=== PATIENT | female | born 1965 | race Caucasian/White ===

== ENCOUNTER 2017-03-14 09:31 | Emergency (ER) | payer BC, MEDICAID ==
[~2017-03-14] VITALS: Ht 162.6 cm; Wt 94.8 kg
[~2017-03-14 09:31] MED LIST: ACETAMINOPHEN-H1 TA2 PO; ACYCLOVIR800 MG PO; AMITRIPTYLINE 550 MG OR; BACTRIM DS 8001 TA1 PO; BUFEN200 MG PO; CYCLOBENZAPRINE10 M1 OR; DIAZEPAM5 M1 PO; FLEXERIL10 MG PO; FLEXERIL5 MG PO; IBUPROFEN100 MG PO; KEFLEX 500MG.500 MG PO; LORTAB 5/500 501 TAB PO; LORTAB 500 MG-71 TAB PO; LYRICA50 MG PO; MEDROL 4MG. DOSE4 MG PO; METHOCARBAMOL750 M1 PO; MOTRIN800 MG PO; MUSCLE RELAXER PO; NAPROSYN 500MG500 MG PO; PHENERGAN 25MG.25 M1 PO; PHENERGAN 25MG.25 MG PR; PREDNISONE 10MG10 MG PO; PREDNISONE20 MG PO; PRILOSEC OTC20 MG PO; TYLENOL W/CODEI1 TA2 PO; ZOFRAN4 MG PO; [UNRECOGNIZED DRUG - OTHER] PO
[2017-03-14] MEDS ORDERED: BROMFED DM COU118 ML PO (09:59)
--- NOTE | 2017-03-14 09:59 | Urgent Treatment Center Report ---
History of Present Issue Date/Time Seen by Provider 03/14/17 0952 Visit Reason Pt arrived:Walked Presenting Problem:PT STATES COUGH AND SINUS CONGESTION X3 DAYS Location if Accident: Onset of symptoms date/time:03/12/17/ or onset unknown for:MEDICAL HX UNKNOWN Have you (or family members/close friends) recently traveled outside the [place]? N If Yes, where/when: Have you had exposure to infectious disease within the past month? TB? Other? Specify: c/o "I have that crud again." c/o scratchy throat, PND, rhinorrhea, head congestion, saira ear pressure, "and cough caused by that drainage tickling my throat". Symptoms x 2-3 days. Same symptoms "about 2 weeks ago then my grandbabies got it and now they have given it back to me". Denies fever, aches, chills, SOA. Mucinex hasn't helped. Feels worse at night. Source patient Exam Limitations no limitations ALLERGIES Coded Allergies: eletriptan (Intermediate, NUMBNESS AND TONGUE FELT FUNNY 03/01/16) gabapentin (MAKES EYE BLURRY 03/01/16) Home Medications Reported Medications Cyclobenzaprine Hcl 10 MG OR DAILY #60 HYDROCODONE/ACETAMINOPHEN (Hydrocodon-Acetaminophen 5-325) 1 TAB PO BID PRN PAIN #20 Diazepam 5 MG PO BID PRN PAIN #60 History Medical History General CAD? No Angina: No NH: No Hypertension? No Hyperlipidemia? No CHF? No DVT? No PE? No COPD? No Asthma? No Anemia? No GERD? No Gastric ulcers? No GI Bleed? No Hernia? No Thyroid Problems? No Hypothyroidism? No CVA? No Seizures? No Diabetes? No Insulin Dependent: No Insulin Pump: No Home FSBS? No Renal Insuffiency? No UTI? No Stones? No BPH? No GB Disease: No Nephritic Syndrome? No Asplenia? No Hepatitis? No Sickle Cell Disease? No Arthritis? No Migraines? Yes Cataracts? No Glaucoma? No MRSA? No HIV? No TB? No Anxiety? No Depression? No Cancer? No More? No Immunization HX DT/Tetanus UNKNOWN Flu 2YRSorMore Pneumonia NEVER Surgical Hx Previous Surgery?Y Tubal Ligation BREAST REDUCTION CERVICAL FUSION HYSTERECTOMY FOOT CYST REMOVED LEFT ROTATOR CUFF SPINAL FUSION SECOND SPINAL FUSION LEFT ROTACUFF NECK LOWER BACK Family History Family HX Diabetes Yes CAD Yes Hypertension No Hyperlipidemia Yes Cancer No TB No Social History Smoking Hx Smoker: Former Smoker Tobacco: No Alcohol Alcohol: No Review of Systems All Other Systems Reviewed and Negative Constitutional see HPI Eyes denies drainage ENT denies: ear discharge, throat pain ("just that drainage"), throat swelling. Respiratory see HPI, denies wheezing Cardiovascular denies chest pain Gastrointestinal denies no symptoms reported Musculoskeletal see HPI Skin denies rash Psychiatric/Neurological denies headache Physical Exam Vital Signs Vital Signs Date Time Temp Pulse Resp B/P Pulse O2 O2 Flow FiO2 Ox Delivery Rate 03/14 0936 97.2 95 20 123/72 99 General Appearance normal appearance, no apparent distress Eye Exam - bilateral eye normal exam Ear, Nose, Throat normal ENT inspection (x/ mild nasal congestion) Neck non-tender, supple Respiratory Status No: respiratory distress, productive cough, non productive cough. Lung Sounds anterior: lungs clear. posterior: lungs clear. bilateral: lungs clear. Cardiovascular regular rate/rhythm, no peripheral edema, no murmur Neurologic alert, oriented x 3 Mental status normal mood/affect Skin normal color, warm/dry Lymphatic no adenopathy Medical Decision Making LABS/Meds/Orders Pt receiving controlled substance in ED? No Departure Departure Time of Disposition 0957 Disposition DC Home or Self Care(routine) Clinical Impression Primary Impression: Upper respiratory virus Condition STABLE Referrals NO REFERRAL Follow up with Primary Care IMMEDIATELY for new or worsening symptoms OR no noticeable improvement over the next 72 hours. 911 for difficulty breathing or swallowing. Patient Instructions DI for Viral Upper Respiratory Infection -- Adult Additional Instructions * No sign of bacterial infection. Likely viral. Virus can take 7-14 days to run their course * Monitor Temp. FU if fevers begin * Encourage fluids, water, gatorade, powerade, pedialyte if infant/toddler/child * warm salt water gargles * warm fluids * sore throat lozenges * sleep elevated * humidifier/vaporizer * Bromfed may cause drowsiness. Know how it effects you (or your child) before driving, caring for small children, or sending your child to school. No other antihistamines/allergy medications while taking bromfed. Discharge Counseling Counseled pt/family regarding diagnosis, medications/RX, home care, follow up needs Prescriptions Current Visit Scripts D-METHORPHAN HB/P-EPD HCL/BPM (Bromfed Dm Cough Syrup) 10 ML PO QIDP PRN cough #240 ML at 1007
[2017-03-14 10:00] VITALS: BP 123/72
== END 2017-03-14 10:01 | disposition home or self-care (01) ==
LOC: UTC 09:31
DX: J06.9 Acute upper respiratory infection, unspecified (principal)

== ENCOUNTER 2017-05-24 01:04 | Emergency (ER) | payer BC, MEDICAID ==
[~2017-05-24] VITALS: Ht 162.6 cm; Wt 93.0 kg
[~2017-05-24 01:04] MED LIST changes: +BROMFED DM COU118 ML PO
[2017-05-24] MEDS ORDERED: MELOXICAM15 MG PO (01:16)
--- NOTE | 2017-05-24 01:22 | Emergency Room Report ---
History of Present Illness Time Seen by MD Galvan Presenting Problem in Triage Pt arrived:Walked Presenting Problem:C/O BACK PAIN TO MIDDLE OF BACK THAT RADIATES INTO RIGHT UPPER QUAD Onset of symptoms date/time:05/24/1703/02/1600 or onset unknown for: Treatment Prior to Arrival: [employer] Provided by: Sepsis Risk Assessment: Temp: 97.7 B/P: 156/93 MAP: 114 Pulse: 97 Resp: 18 Recent fever? N Clinical Suspician of Infection? N Mental Status: 1 - Regular (Normal Baseline) Sepsis Risk:Low Sepsis Risk Have you (or family members/close friends) recently traveled outside the [place]? N If Yes, where/when: Have you had exposure to infectious disease within the past month? N TB? Other? Specify: Source patient, RN notes reviewed, family, old records Exam Limitations no limitations Comment pt with upper back pain w/o trauma with no rash or fever with no cough - pt with hx of back surg and no acute neuro sx Cardiac Chest Pain Chest pain indicative of cardiac No Timing/Duration this evening Severity moderate ALLERGIES Coded Allergies: eletriptan (Intermediate, NUMBNESS AND TONGUE FELT FUNNY 03/01/16) gabapentin (MAKES EYE BLURRY 03/01/16) Home Medications Reported Medications Diazepam 5 MG PO BID PRN PAIN #60 Meloxicam (Meloxicam 15MG) 15 MG PO BID #30 History Medical History General CAD? No Angina: No VA: No Hypertension? No Hyperlipidemia? No CHF? No DVT? No PE? No COPD? No Asthma? No Anemia? No GERD? No Gastric ulcers? No GI Bleed? No Hernia? No Thyroid Problems? No Hypothyroidism? No CVA? No Seizures? No Diabetes? No Insulin Dependent: No Insulin Pump: No Home FSBS? No Renal Insuffiency? No End Stage Renal Disease? No UTI? No Stones? No BPH? No GB Disease: No Nephritic Syndrome? No Asplenia? No Hepatitis? No Sickle Cell Disease? No Arthritis? No Migraines? Yes Cataracts? No Glaucoma? No MRSA? No HIV? No TB? No Anxiety? No Depression? No Cancer? No More? 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 Respiratory denies cough, denies shortness of breath, denies wheezing Cardiovascular denies chest pain, denies syncope Gastrointestinal denies abdominal pain, denies diarrhea, denies vomiting Genitourinary denies: dysuria, frequency, hesitancy, hematuria. Musculoskeletal see HPI, back pain, denies joint pain, denies neck pain, other Skin denies rash Psychiatric/Neurological denies headache, denies seizure Physical Exam Vital Signs Vital Signs Date Time Temp Pulse Resp B/P Pulse O2 O2 Flow FiO2 Ox Delivery Rate 05/24 0259 77 18 118/71 97 05/24 0124 18 05/24 0109 97.7 97 18 156/93 99 - WBC >12,000 or <4,000 or 10% bands? 2 or more SIRS Criteria Met? B/P:118/71 MAP:114 Creatinine >2.0? UA output<0.5ml/kg/hr for 2 hrs? Platelet count >100,000? Lactate >2.0mmol/1? INR >1.2 or PTT > than 60 sec? Evidence of Organ Dysfunction? Provider documented clinical suspician of infection? N Sepsis Criteria Count: 1 Sepsis Risk: Low Sepsis Risk General Appearance no apparent distress Eye Exam - bilateral eye PERRL, bilateral eye EOMI Ear, Nose, Throat normal ENT inspection Neck non-tender Respiratory Status No: respiratory distress. Cardiovascular regular rate/rhythm Peripheral Pulses Pulses normal Yes Gastrointestinal soft, no organomegaly, no guarding, no rebound Back no CVA tenderness, no vertebral tenderness, decreased range of motion Extremities no calf tenderness Strength 4 Upper Ext (L), 4 Upper Ext (R), 4 Lower Ext (L), 4 Lower Ext (R) Neurologic alert, pet resort concierge II-XII nml as tested, no motor/sensory deficits Reflexes Reflexes normal No Mental status normal mood/affect Skin no rash cons.w/shingles Medical Decision Making LABS/Meds/Orders Pt receiving controlled substance in ED? No Results/Orders Laboratory Tests 05/24/17 0120: Sodium 140, Potassium 3.7, Chloride 101, Carbon Dioxide 27, BUN 18, Creatinine 0.9, Estimated Creat Clear 110, Estimated GFR (MDRD) 66, Glucose 101, Calcium 9.1, Total Bilirubin 0.5, AST 19, ALT 39, Alkaline Phosphatase 61, Total Protein 8.1, Albumin 4.2, Globulin 3.9 H, Albumin/Globulin Ratio 1.1, Amylase 62, Lipase 187, WBC 9.3, RBC 4.87, Hgb 13.8, Hct 41.6, MCV 85.3, RDW 12.3, Plt Count 274, MPV 7.7, Gran % 56.8, Gran # 5.3, Lymphocytes % 34.3, Monocytes % 6.5, Eosinophils % 1.9, Basophils % 0.5, Lymphocytes # 3.2, Monocytes # 0.6, Eosinophils # 0.2, Basophils # 0.1, PUBS MCHC 33.2, MCH 28.3 05/24/17 0112: Urine Color YELLOW, Urine Appearance CLEAR, Urine pH 6.5, Ur Specific [place] <= 1.005, Urine Protein NEGATIVE, Urine Ketones NEGATIVE, Urine Blood NEGATIVE, Urine Nitrate NEGATIVE, Urine Bilirubin NEGATIVE, Urine Urobilinogen 0.2, Ur Leukocyte Esterase NEGATIVE, Urine WBC OCC, Ur Squamous Epith Cells 3-5, Urine Bacteria TRACE, Urine Glucose NEGATIVE Current Medication Orders Sig/Veronika Start time Last Medication Dose Route Stop Time Status Admin Ketorolac 30 MG ONCE ONE 05/24 130 DC 05/24 Tromethamine IV 05/24 131 0124 Ondansetron HCl 4 MG ONCE ONE 05/24 130 DC 05/24 IV 05/24 131 012 Sodium Chloride 10 ML PRN PRN 05/24 130 AC IV 05/25 011 Sodium Chloride 1,000 ML .Q1H1M 05/24 130 DC 05/24 IV 05/24 023 0125 Sodium Chloride 10 ML PRN PRN 05/24 130 AC IV 05/25 119 Ketorolac 0 .STK-MED ONE 05/24 124 DC Tromethamine .ROUTE Ondansetron HCl 0 .STK-MED ONE 05/24 124 DC .ROUTE Sodium Chloride 1,000 ML .STK-MED ONE 05/24 123 DC IV Orders Procedure Date/time Status DIET-NOTHING BY MOUTH 05/[address] THORACIC SPINE W/O CONTRAST 05/[address] ABD & PELVIS W/O CONTRAST 05/[address] SCAN REQ 05/24 123 Complete CHEST-AP VIEW ONLY 05/[address] ABD/PELVIS REQ 05/24 121 Complete IV SALINE LOCK 05/24 121 Active LIPASE 05/24 121 Complete CBC WITH AUTO DIFF 05/24 121 Complete CHEM 12 PROFILE 05/24 121 Complete AMYLASE 05/24 121 Complete URINALYSIS/COMPLETE 05/24 109 Complete XRAY/CT/US XRAY/CT/US 1 XRAY chest XR interpretation by reviewed by me Xray Results normal/NAD XRAY/CT/US 2 CT abdomen, pelvis, T-spine CT interpretation by discussed w/radiologist Time results known: 314 CT Results normal/NAD Departure Departure Time of Disposition 031 Disposition DC Home or Self Care(routine) Clinical Impression Primary Impression: Thoracic radiculopathy due to degenerative joint disease of spine Condition STABLE Referrals Dequan Martino MD (Family) Patient Instructions DI for Thoracic Back Pain Additional Instructions use meds and see pcp for follow up Discharge Counseling Counseled pt/family regarding diagnosis, test results, medications/RX, follow up needs Prescriptions Current Visit Scripts Prednisone (Prednisone 20MG) 20 MG PO BID #10 TAB ED Critical Care Critical Care No at 0323
--- OUTSIDE RECORDS SUMMARY | 2017-05-24 01:28 | External Medical Summary Rpt ---
Author Author ILA Durbin, ILA Dubrin Organization [employer] Address Unknown Phone Unavailable
--- OUTSIDE RECORDS SUMMARY | 2017-05-24 01:28 | External Medical Summary Rpt | CCD ---
Author Author , ILA Organization [employer] Address Unknown Phone [email or web address] Care Team Providers Care Grocery Team Member Name Role Phone Yi Israel MD, Unavailable Unavailable Yi Israel MD Purpose Continuity of Care Document - 11-29-2012 through 2016 Problems Code Diagnosis DOS Provider Status K57.30 DIVERTICULO 02-13-2017 SIS OF LARGE INTESTINE WITHOUT PERFORATION OR ABSCESS WITHOUT BLEEDING K64.4 RESIDUAL 02-13-2017 HEMORRHOIDA L SKIN TAGS Z12.11 ENCOUNTER 02-13-2017 FOR SCREENING FOR MALIGNANT NEOPLASM OF COLON Z83.71 FAMILY 02-13-2017 HISTORY OF COLONIC POLYPS Z80.0 FAMILY 01-06-2017 HISTORY OF MALIGNANT NEOPLASM OF DIGESTIVE ORGANS 784.0 784.0 11-29-2012 [facility] Allergies, Adverse Reactions, Alerts Type Allergy to substance Drug Allergy Adverse Reaction to Substance Substance Reaction Severity REL-REILLY NUMBNESS & TONGUE Unknown FELT FUNNY Eletriptan NUMBNESS Intermediate Medications Na ND Rx Da Fi Fi Am Da Di Ph RX Ph St me C No te ll ll ou ys ag ar # ys at rm s nt no ma ic us Or Da si cy ia de te s n re d De 00 05 0 No xa 51 -1 me 74 6- Lo th 90 20 ng as 12 13 er on 5 e Ac 4M ti G/ ve Ml Sd v BU 55 05 0 No TO 39 -1 RP 00 6- Lo FIGUEROA 18 20 ng NO 30 13 er L 1 1 Ac MG ti /M ve L AL MD 00 05 0 No OM 64 -1 ET 11 6- Lo FIGUEROA 49 20 ng ZI 53 13 er NE 5 Ac 25 ti ve MG /M L AM PU L Vital Signs 11-29-2012 21:50 Name Value Interpretat Reference Comment ion Range BP 90 mm[Hg] Diastolic BP Systolic 143 mm[Hg] Heart 104 /min Rate/Pulse O2% 96 % Respiratory 20 /min Rate 11-29-2012 21:17 Name Value Interpretat Reference Comment ion Range BP 85 mm[Hg] Diastolic BP Systolic 155 mm[Hg] Heart 100 /min Rate/Pulse O2% 100 % Respiratory 20 /min Rate Encounters Encounter Start End Date Code Location Performer Type Date Emergency MARY JO Israel MD (ER) 3 21:00 3 22:15 [facility]
--- OUTSIDE RECORDS SUMMARY | 2017-05-24 01:28 | External Medical Summary Rpt | CCD ---
Author Author , ILA THORPE Address Unknown Phone [email or web address] Immunization Name Date Rout CVX Reac Dose Comm Prov Is Faci e tion ent ider Refu lity Give sed n Infl 10-0 Intr 0.5 Hist PD20 No PD20 uenz 5-20 amus mL oric 255 255 a 17 cula al Quad r Info rmat W/Pr ion es - Sour ce Unsp ecif ied Tdap 05-1 Intr 115 0.5 Hist AGATHA No RITE , 7-20 amus mL oric SNIK AID0 Adso 16 cula al OV 3938 rbed r Info ANDR rmat EY ion - Sour ce Unsp ecif ied
--- OUTSIDE RECORDS SUMMARY | 2017-05-24 01:28 | External Medical Summary Rpt | CCD ---
Author Author , ILA Organization [employer] Address Unknown Phone [email or web address] Providers Care Product Safety Officer Name Role Phone Yi Israel MD, Unavailable [...] NEOPLASM OF DIGESTIVE ORGANS 784.0 784.0 11-29-2012 [facility] Allergies, Adverse Reactions, Alerts Type Allergy [...] Ac MG ti /M ve L AL [place] 00 05 0 No OM 64 -1 [...] Israel MD (ER) 3 21:00 3 22:15 [facility]
--- OUTSIDE RECORDS SUMMARY | 2017-05-24 01:28 | External Medical Summary Rpt | CCD ---
Author Author , ILA THORPE Address Unknown Phone [email or web address] Immunization Name Date Rout CVX Reac Dose [...]
--- OUTSIDE RECORDS SUMMARY | 2017-05-24 01:28 | External Medical Summary Rpt ---
Author Author ILA Durbin, ILA Durbin Organization [employer] Address Unknown Phone Unavailable
[2017-05-24 01:38] LABS: URINE BILIRUBIN - DIPSTICK NEGATIVE (NEG); URINE BLOOD NEGATIVE (NEG)
[2017-05-24 01:41] LABS: HEMOGLOBIN 13.8 g/dL (12.2-16.2); LYMPH # 3.2 K/mm3 (0.7-4.5); LYMPH % 34.3 % (10-50.0)
[2017-05-24] MEDS ORDERED: PREDNISONE 20MG20 MG PO (03:22)
[2017-05-24 03:30] VITALS: BP 138/66
--- NOTE | 2017-05-24 04:37 | RADIOLOGY REPORT PS360 ---
CHEST-AP VIEW ONLY HISTORY: Pain back pain ORDERING PHYSICIAN: Yi Israel MD PATIENT AGE: 52 years COMPARISON: 03/18/2014 FINDINGS: The cardiomediastinal silhouette and pulmonary vascularity are within normal limits. The lungs are clear without infiltrates, suspicious nodules, or pleural effusions. No acute bony abnormalities. IMPRESSION: Negative chest, no acute finding
--- NOTE | 2017-05-24 04:57 | RADIOLOGY REPORT PS360 ---
CT THORACIC SPINE W/O CONTRAST INDICATION: Mid to low back pain radiating anteriorly C/O PAIN IN BACK THAT RADIATES TO FRONT ORDERING PHYSICIAN: Yi Israel MD PATIENT AGE: 52 years COMPARISON: None TECHNIQUE: Axial images are obtained without contrast. Sagittal and coronal reformatted images are reviewed as well. FINDINGS: There is normal alignment. Multilevel degenerative disc disease is present from T3 to T12 with decrease in the disc space and osteophyte formation. There is some cortical irregularity involving the endplates from T5 to T12 with small Schmorl's nodes without significant compression change. No acute fracture or dislocation. No lytic or blastic change. No paravertebral mass. There is been prior injury or cervical disc fusion at C6 and C7. There is a 5 mm noncalcified nodule in the left lower lobe and a 4 mm noncalcified nodule in the right lower lobe. IMPRESSION: 1. No acute fracture. 2. Mild multilevel thoracic spondylosis. 3. Noncalcified bilateral lower lobe nodules
--- NOTE | 2017-05-24 05:05 | RADIOLOGY REPORT PS360 ---
CT ABD PELVIS W/O CONTRAST CLINICAL INDICATION: Upper abdominal pain C/O PAIN IN BACK THAT RADIATES TO FRONT ORDERING PHYSICIAN: Yi Israel MD PATIENT AGE: 52 years COMPARISON: None TECHNIQUE: Axial images obtained with sagittal and coronal reformats. PROCEDURE: Oral Contrast: None IV Contrast: None . FINDINGS: Lower thorax: Calcified granuloma within the lingula ABDOMEN: Liver: Diffuse fatty infiltration Gallbladder: Nondistended. No radio opaque stones. Pancreas: No masses or peripancreatic fluid collections. Spleen: Unremarkable. Adrenals: Unremarkable Kidneys/ureters: No masses. No renal calculi. No hydronephrosis. No perinephric fluid collections. No ureteral dilatation or obvious ureteral calculi. Minimal ectasia of the right renal pelvis and proximal ureter nonspecific. No obstructing ureteral calculus evident. Stomach bowel: There is diverticulosis of the sigmoid colon. No evidence of diverticulitis. Appendix: No evidence of appendicitis. PELVIS: Reproductive: Hysterectomy Bladder: Nondistended. No obvious stones or masses. ABDOMEN & PELVIS: Peritoneum: No abnormal fluid collections. No obvious inflammatory changes. No free air. Lymph nodes: No enlarged lymph nodes apparent. Vasculature: No evidence of abdominal aortic aneurysm. No retroperitoneal hemorrhage evident. Bones: Prior fusion of L5 and S1. Lipoma in the right tinea fascia wood IMPRESSION: 1. No acute intra-abdominal or pelvic findings. 2. Colonic diverticulosis without diverticulitis. 3. Hepatic steatosis
== END 2017-05-24 03:31 | disposition home or self-care (01) ==
LOC: ER 01:04
PROVIDERS: Emergency Medicine
DX: M47.814 Spondylosis without myelopathy or radiculopathy, thoracic region (principal)
CPT/HCPCS: J2405

== ENCOUNTER → 2017-06-05 | Outpatient (CLI) | payer BC, MEDICAID ==
[~2017-06-05] MED LIST changes: +MELOXICAM15 MG PO; +PREDNISONE 20MG20 MG PO
[2017-06-05 10:40] LABS: BUN 12 mg/dL (7-18); GFR (ESTIMATED) 66 ML/MIN (59-)
--- NOTE | 2017-06-06 07:07 | RADIOLOGY REPORT PS360 ---
MRI-L-SPINE W/WO, MRI-3D RENDERING/MYELOGRAM HISTORY: Left lower extremity pain, left-sided low back pain with left hip and leg pain and numbness RADICULAR PAIN OF LEFT LOWER EXTREMITY,LUMBAGO ORDERING PHYSICIAN: Beryl Chavez APRN PATIENT AGE: 52 years COMPARISON: 03/01/2016 TECHNIQUE: Standard multiplanar multiecho sequences are performed without and with contrast. 3-D MIP and myelographic images are also rendered and reviewed FINDINGS: There is normal alignment. The spinal cord ends at the L1 level. Extensive artifact is present in prior lumbar surgery with interpedicular screws at L5 and S1 with extensive susceptibility artifact on the left at L3-L4. This is similar compared to the previous study. The systolic to be due to a few metallic fragments in the particular region of L4. T11-T12: Mild degenerative disc disease. T12-L1 and L1-L2 are unremarkable. L2-L3: Mild degenerative disc disease. Mild facet and ligamentum flavum hypertrophy with mild bilateral lateral recess narrowing L3-L4: Extensive artifact obscuring the left foramen and lateral recess and paraspinal region. L4-L5: Extensive artifact from the interpedicular screws with degenerative disc disease at that level. L5-S1: Extensive artifact from the interpedicular screws with degenerative disc disease with disc spacer at that level. There is a small broad-based central disc protrusion slightly hyperintense on both T1 and T2. This may show some minimal contrast enhancement. It does appear to be some enhancement around the left S1 nerve root proximally. No extruded herniated disc is evident. IMPRESSION: 1. Postsurgical changes with extensive artifact which does obscure fine detail in the levels of L3-L4, L4-5, and L5-S1. 2. Small broad-based central disc protrusion at L5-S1 similar to the previous exam with mild impingement upon the thecal sac and abutting the anteromedial aspect of both S1 nerve roots. 3. Mild amount of epidural fibrosis surrounding the left S1 nerve root.
== END ==
LOC: RAD 10:14
PROVIDERS: Nurse Practitioner Family
DX: M54.10 Radiculopathy, site unspecified (principal); M54.5 Low back pain; M54.41 Lumbago with sciatica, right side
CPT/HCPCS: A9576